=== PATIENT | female | born 1960 | race African-American/Black ===

== ENCOUNTER 2018-01-29 19:45 | Emergency (ER) | payer MEDICARE, MEDICAID ==
[~2018-01-29] VITALS: Ht 167.6 cm; Wt 109.0 kg
[~2018-01-29 19:45] MED LIST: AMLO1CAP5 PO
[2018-01-29 21:53] LABS: BASOPHILS % 0.8 % (0.0-2.0); EOSINOPHILS % 4.7 % (0.0-5.0); HEMATOCRIT. 38.8 % (36.0-48.0); HEMOGLOBIN. 12.9 g/dL (12.0-16.0); LYMPHOCYTES % 45.9 % (20.0-50.0); MEAN CORPUSCULAR VOLUME 84.1 fL (81.0-99.0); MEAN PLATELET VOLUME 7.7 fl (7.4-10.4); MONOCYTES % 7.7 % (2.0-8.0); NEUTROPHILS % 40.9 % (40.0-76.0); PLATELET 299 x1000/uL (130-400); RED BLOOD CELL COUNT 4.61 mill/uL (4.2-5.4); RED CELL DISTRIBUTION WIDTH 15.7 % (11.6-14.6)
[2018-01-29 21:59] LABS: CHLORIDE 106 mEq/L (98-107)
[2018-01-29 22:04] LABS: D-DIMER 2.35 mg/L FEU (<0.50); PROTHROMBIN TIME 9.9 sec (9.1-11.1)
[2018-01-29] MEDS ORDERED: IOHEXOL-350 100 ML BOTTLE ONE (23:00)
[2018-01-29 23:26] LABS: BASOPHILS % 1.9 % (0.0-2.0); EOSINOPHILS % 3.8 % (0.0-5.0); HEMATOCRIT. 37.5 % (36.0-48.0); HEMOGLOBIN. 12.6 g/dL (12.0-16.0); LYMPHOCYTES % 46.2 % (20.0-50.0); MEAN CORPUSCULAR HEMOGLOBIN 28.1 pg (28.0-32.0); MEAN PLATELET VOLUME 7.6 fl (7.4-10.4); MONOCYTES % 6.1 % (2.0-8.0); PLATELET 292 x1000/uL (130-400); RED BLOOD CELL COUNT 4.47 mill/uL (4.2-5.4); RED CELL DISTRIBUTION WIDTH 15.6 % (11.6-14.6)
[2018-01-29 23:30] LABS: CHLORIDE 107 mEq/L (98-107)
[2018-01-29] MEDS ORDERED: HYDROCODONE/ACETAMINOPHEN 5/325MG TABLET PO ONE (23:45)
[2018-01-30 00:03] LABS: CLARITY URINE CLEAR (CLEAR); COLOR URINE YELLOW (YELLOW); KETONES URINE TRACE (NEGATIVE); LEUKOCYTE ESTERASE URINE NEGATIVE (NEGATIVE); NITRITE URINE NEGATIVE (NEGATIVE); OCCULT BLOOD URINE NEGATIVE (NEGATIVE); PROTEIN URINE NEGATIVE (NEGATIVE); SPECIFIC GRAVITY URINE 1.025 (1.005-1.030)
[2018-01-30 04:30] VITALS: BP 140/78
== END 2018-01-30 04:30 | disposition home or self-care (01) ==
LOC: ER 20:34
DX: R06.00 Dyspnea, unspecified (principal); R07.89 Other chest pain; I10 Essential (primary) hypertension; E11.9 Type 2 diabetes mellitus without complications; Z79.899 Other long term (current) drug therapy
CPT/HCPCS: 36415; 71045; 71275; 80053; 81003; 83880; 84484; 85025; 85379; 85610; 93005; 99285; Q9967

== ENCOUNTER 2018-09-03 13:41 | Inpatient (IN) | payer MEDICARE, MEDICAID ==
[~2018-09-03] VITALS: Ht 172.7 cm; Wt 109.3 kg
[2018-09-03] MEDS ORDERED: DIAZEPAM 5 MG TABLET PO ONE (14:15)
[2018-09-03] MEDS ORDERED: FAMOTIDINE 20MG TABLET PO ONE (14:15)
[2018-09-03] MEDS ORDERED: MAGNESIUM/ALUMINUM HYDROXIDE/SIMETHICONE 30ML UDC PO ONE (14:15)
[2018-09-03] MEDS ORDERED: IBUPROFEN 800MG TABLET PO ONE (14:15)
[2018-09-03 14:45] LABS: CHLORIDE 106 mEq/L (98-107); PARTIAL THROMBOPLASTIN TIME 26.7 sec (23.4-31.0); PROTHROMBIN TIME 10.1 sec (9.6-11.0)
[2018-09-03 14:49] LABS: ETHANOL BLOOD < 10 mg/dL
[2018-09-03 14:55] LABS: BASOPHILS % 1.5 % (0.0-2.0); EOSINOPHILS % 1.8 % (0.0-5.0); HEMATOCRIT. 40.3 % (36.0-48.0); HEMOGLOBIN. 13.4 g/dL (12.0-16.0); LYMPHOCYTES % 46.6 % (20.0-50.0); MEAN CORPUSCULAR HEMOGLOBIN 28.5 pg (28.0-32.0); MEAN CORPUSCULAR VOLUME 85.4 fL (81.0-99.0); MEAN PLATELET VOLUME 8.1 fl (7.4-10.4); MONOCYTES % 5.1 % (2.0-8.0); PLATELET 278 x1000/uL (130-400); RED BLOOD CELL COUNT 4.71 mill/uL (4.2-5.4); RED CELL DISTRIBUTION WIDTH 15.2 % (11.6-14.6)
[2018-09-03 15:07] LABS: CLARITY URINE CLEAR (CLEAR); COLOR URINE YELLOW (YELLOW); KETONES URINE NEGATIVE (NEGATIVE); LEUKOCYTE ESTERASE URINE NEGATIVE (NEGATIVE); NITRITE URINE NEGATIVE (NEGATIVE); OCCULT BLOOD URINE NEGATIVE (NEGATIVE); PROTEIN URINE NEGATIVE (NEGATIVE); SPECIFIC GRAVITY URINE 1.006 (1.005-1.030); UROBILINOGEN URINE 0.2 E.U./dL (0.2-1.0)
[2018-09-03 15:29] LABS: *AMPHETAMINES SCREEN URINE NEGATIVE (NEGATIVE)
[2018-09-03 15:30] LABS: *BARBITURATES SCREEN URINE NEGATIVE (NEGATIVE); *BENZODIAZEPINES SCREEN URINE NEGATIVE (NEGATIVE); *COCAINE SCREEN URINE NEGATIVE (NEGATIVE); METHADONE URINE SCREEN NEGATIVE (NEGATIVE); OPIATES URINE SCREEN NEGATIVE (NEGATIVE); PHENCYCLIDINE URINE SCREEN NEGATIVE (NEGATIVE)
[2018-09-03 15:31] LABS: CANNABINOID URINE SCREEN NEGATIVE (NEGATIVE)
[2018-09-03] MEDS ORDERED: ACETAMINOPHEN 325MG TABLET PO PRN (16:45)
[2018-09-03] MEDS ORDERED: DOCUSATE SODIUM 100MG CAPSULE PO PRN (16:45)
[2018-09-03] MEDS ORDERED: ONDANSETRON HCL 4MG/2ML INJ IV PRN (16:45)
[2018-09-03] MEDS ORDERED: IPRATROPIUM/ALBUTEROL 0.5-3(2.5)MG/3ML NEB INH PRN (16:45)
[2018-09-03] MEDS ORDERED: MAGNESIUM/ALUMINUM HYDROXIDE/SIMETHICONE 30ML UDC PO PRN (16:45)
[2018-09-03] MEDS ORDERED: ENOXAPARIN 40MG/0.4ML SYR SUBCUT SCH (16:45)
[2018-09-03] MEDS ORDERED: CLONIDINE 0.1MG TABLET PO PRN (16:45)
[2018-09-03] MEDS ORDERED: GUAIFENESIN 200MG/10ML SUGAR FREE UDC PO PRN (16:45)
[2018-09-03 17:19] LABS: PHOSPHORUS 3.3 mg/dL (2.5-4.9)
[2018-09-03 22:14] VITALS: BP 142/63
[2018-09-03 22:50] VITALS: BP 142/63
[2018-09-03] MEDS: HYDROCODONE/ACETAMINOPHEN 5/325MG TABLET PO PRN (23:28)
[2018-09-03] MEDS ORDERED: ASPI-1158 PO (23:43)
[2018-09-03] MEDS ORDERED: METF-815 PO (23:43)
[2018-09-03] MEDS ORDERED: CARI350T27 PO (23:45)
[2018-09-03] MEDS ORDERED: ESCI10TA54 PO (23:45)
[2018-09-03] MEDS ORDERED: ATOR10TA69 PO (23:45)
[2018-09-04 00:05] VITALS: BP 144/59
[2018-09-04] MEDS ORDERED: DEXTROSE 50% WATER 50ML SYRINGE IV PRN (02:15)
[2018-09-04] MEDS: HYDROCODONE/ACETAMINOPHEN 5/325MG TABLET PO PRN (03:17)
[2018-09-04 04:00] VITALS: BP 135/64
[2018-09-04 06:47] LABS: BASOPHILS % 1.1 % (0.0-2.0); EOSINOPHILS % 2.6 % (0.0-5.0); HEMATOCRIT. 38.9 % (36.0-48.0); HEMOGLOBIN. 12.7 g/dL (12.0-16.0); LYMPHOCYTES % 51.8 % (20.0-50.0); MEAN CORPUSCULAR HEMOGLOBIN 28.1 pg (28.0-32.0); MEAN CORPUSCULAR VOLUME 85.6 fL (81.0-99.0); MEAN PLATELET VOLUME 8.2 fl (7.4-10.4); MONOCYTES % 6.1 % (2.0-8.0); NEUTROPHILS % 38.4 % (40.0-76.0); PLATELET 267 x1000/uL (130-400); RED BLOOD CELL COUNT 4.54 mill/uL (4.2-5.4); RED CELL DISTRIBUTION WIDTH 15.5 % (11.6-14.6)
[2018-09-04 07:17] LABS: CHLORIDE 108 mEq/L (98-107)
[2018-09-04 07:25] LABS: HDL CHOLESTEROL 43 mg/dL (40-59); LDL CHOLESTEROL 84 mg/dL (5-100)
[2018-09-04] MEDS ORDERED: BLOOD SUGAR DIAGNOSTIC STRIP TEST SCH (07:40)
[2018-09-04 08:00] VITALS: BP 126/69
[2018-09-04] MEDS ORDERED: INSULIN LISPRO 100 UNITS/ML SUBCUT SCH (08:10)
[2018-09-04] MEDS ORDERED: ENOXAPARIN 30MG/0.3ML SYR SUBCUT SCH (09:00)
== END 2018-09-04 11:00 | disposition home or self-care (01) | DRG 206 ==
LOC: ER 13:41 → 7WST 16:14 → ENRESERV 20:53
PROVIDERS: ADMIT Internal Medicine; ATTEND Internal Medicine
DX: M94.0 Chondrocostal junction syndrome [Tietze] (principal); I24.9 Acute ischemic heart disease, unspecified; R07.9 Chest pain, unspecified; E11.9 Type 2 diabetes mellitus without complications; E66.01 Morbid (severe) obesity due to excess calories; G89.29 Other chronic pain; I10 Essential (primary) hypertension; J44.9 Chronic obstructive pulmonary disease, unspecified; Z96.649 Presence of unspecified artificial hip joint; Z68.36 Body mass index [BMI] 36.0-36.9, adult
CPT/HCPCS: 36415; 71045; 80061; 80305; 80320; 82962; 83036; 83735; 83880; 84100; 84443; 84484; 93005; 93970; 97162; 99285; J1650; J1815; G0480

== ENCOUNTER 2020-02-08 23:17 | Inpatient (IN) | payer MEDICARE, MEDICAID ==
[~2020-02-08] VITALS: Ht 167.6 cm; Wt 117.9 kg
[~2020-02-08 23:17] MED LIST changes: +ASPI-1158 PO; +ATOR10TA69 PO; +CARI350T27 PO; +ESCI10TA61 PO; +METF-815 PO
[2020-02-08] MEDS ORDERED: SODIUM CHLORIDE 0.9% 1,000 ML IV ONE (23:47)
[2020-02-09 00:29] LABS: CHLORIDE 112 mEq/L (98-107)
[2020-02-09] MEDS ORDERED: AZITHROMYCIN 500 MG in DEXT 5% WATER 250 ML IV ONE (00:30)
[2020-02-09] MEDS ORDERED: CEFTRIAXONE 1 G PREMIX 50 ML IV ONE (00:30)
[2020-02-09 00:35] LABS: BASOPHILS % 0.9 % (0.0-2.0); EOSINOPHILS % 1.4 % (0.0-5.0); HEMATOCRIT. 38.9 % (36.0-48.0); LYMPHOCYTES % 29.6 % (20.0-50.0); MEAN CORPUSCULAR HEMOGLOBIN 28.7 pg (28.0-32.0); MEAN CORPUSCULAR VOLUME 85.7 fL (81.0-99.0); MEAN PLATELET VOLUME 7.7 fl (7.4-10.4); MONOCYTES % 5.8 % (2.0-8.0); NEUTROPHILS % 62.3 % (40.0-76.0); PLATELET 265 x1000/uL (130-400); RED BLOOD CELL COUNT 4.53 mill/uL (4.2-5.4); RED CELL DISTRIBUTION WIDTH 15.9 % (11.6-14.6)
[2020-02-09 04:24] LABS: CLARITY URINE TURBID (CLEAR); COLOR URINE YELLOW (YELLOW); KETONES URINE NEGATIVE (NEGATIVE); LEUKOCYTE ESTERASE URINE 1+ (NEGATIVE); NITRITE URINE NEGATIVE (NEGATIVE); OCCULT BLOOD URINE NEGATIVE (NEGATIVE); PROTEIN URINE NEGATIVE (NEGATIVE); SPECIFIC GRAVITY URINE 1.017 (1.005-1.030); UROBILINOGEN URINE 0.2 E.U./dL (0.2-1.0)
[2020-02-09 09:15] VITALS: BP_SYST 117; BP_SYST 146; BP_DIAS 77
[2020-02-09] MEDS ORDERED: DEXTROSE 50% WATER 50ML SYRINGE IV PRN (11:15)
[2020-02-09] MEDS ORDERED: ONDANSETRON HCL 4MG/2ML INJ IV PRN (11:15)
[2020-02-09] MEDS ORDERED: ACETAMINOPHEN 325MG TABLET PO PRN (11:15)
[2020-02-09] MEDS: BLOOD SUGAR DIAGNOSTIC STRIP TEST SCH ×3 (11:29→21:43)
[2020-02-09] MEDS: INSULIN LISPRO 100 UNITS/ML SUBCUT SCH ×3 (11:29→21:00)
[2020-02-09 12:00] VITALS: BP 148/75
[2020-02-09] MEDS ORDERED: ENOXAPARIN 40MG/0.4ML SYR SUBCUT SCH (12:00)
[2020-02-09 16:00] VITALS: BP_SYST 113; BP_SYST 157; BP_DIAS 53; BP_DIAS 95
[2020-02-09] MEDS: METFORMIN HCL 500MG TABLET PO SCH (17:20)
[2020-02-09 20:00] VITALS: BP 120/57
[2020-02-09] MEDS ORDERED: CEFTRIAXONE 1,000 MG in DEXTROSE 5% WATER 50 ML IV SCH (21:00)
[2020-02-09] MEDS ORDERED: ENOXAPARIN 30MG/0.3ML SYR SUBCUT SCH (21:00)
[2020-02-10] VITALS: BP 169/75
[2020-02-10 00:30] VITALS: BP 145/73
[2020-02-10 04:00] VITALS: BP_SYST 147; BP_SYST 150; BP_SYST 155; BP_DIAS 67; BP_DIAS 82; BP_DIAS 89
[2020-02-10] MEDS: BLOOD SUGAR DIAGNOSTIC STRIP TEST SCH (06:31)
[2020-02-10] MEDS: METFORMIN HCL 500MG TABLET PO SCH (06:32)
[2020-02-10] MEDS: INSULIN LISPRO 100 UNITS/ML SUBCUT SCH (06:33)
[2020-02-10 08:00] VITALS: BP_SYST 128; BP_SYST 136; BP_DIAS 69; BP_DIAS 74; BP_DIAS 79
[2020-02-10] MEDS ORDERED: AZITHROMYCIN 250 MG TABLET PO SCH (09:00)
[2020-02-10 09:43] VITALS: BP 136/69
== END 2020-02-10 10:20 | disposition home or self-care (01) | DRG 74 ==
LOC: ER 23:17 → 7WST 02-09 01:05 → ENRESERV 02-09 07:29 → 5WST 02-09 14:15
PROVIDERS: ADMIT Internal Medicine; ATTEND Internal Medicine
DX: G90.8 Other disorders of autonomic nervous system (principal); J98.11 Atelectasis; E44.1 Mild protein-calorie malnutrition; E87.1 Hypo-osmolality and hyponatremia; Z68.41 Body mass index [BMI] 40.0-44.9, adult; Z20.828 Contact with and (suspected) exposure to other viral communicable diseases; E11.9 Type 2 diabetes mellitus without complications; E66.9 Obesity, unspecified; E78.5 Hyperlipidemia, unspecified; I10 Essential (primary) hypertension; R42 Dizziness and giddiness; J98.8 Other specified respiratory disorders; X30.XXXA Exposure to excessive natural heat, initial encounter; Y93.89 Activity, other specified; Y92.89 Other specified places as the place of occurrence of the external cause; Y99.8 Other external cause status
CPT/HCPCS: 36415; 71045; 80053; 81003; 82962; 83605; 83880; 84484; 85025; 87426; 93005; 96365; 99285; J0456; J0696; J1650; J7030; J7060

== ENCOUNTER 2023-09-03 22:19 | Emergency (ER) | payer MEDICAID, MEDICARE ==
[~2023-09-03] VITALS: Ht 167.6 cm; Wt 100.0 kg
[~2023-09-03 22:19] MED LIST changes: -ASPI-1158 PO; +ASPI-1406 PO; +ESCI-7 PO; -ESCI10TA61 PO; -METF-815 PO; +METF-873 PO
[2023-09-03 22:37] VITALS: O2SAT 98
[2023-09-03 23:05] LABS: BASOPHILS % 1.2 % (0.0-2.0); EOSINOPHILS % 1.7 % (0.0-5.0); HEMATOCRIT. 39.1 % (36.0-48.0); HEMOGLOBIN. 13.4 g/dL (12.0-16.0); LYMPHOCYTES % 31.6 % (20.0-50.0); MEAN CORPUSCULAR HEMOGLOBIN 28.9 pg (28.0-32.0); MEAN CORPUSCULAR HGB CONC 34.2 g/dL (31.0-37.0); MEAN CORPUSCULAR VOLUME 84.5 fL (81.0-99.0); MEAN PLATELET VOLUME 7.6 fl (7.4-10.4); MONOCYTES % 4.8 % (2.0-8.0); NEUTROPHILS % 60.7 % (40.0-76.0); PLATELET 327 x1000/uL (130-400); RED BLOOD CELL COUNT 4.63 mill/uL (4.2-5.4); RED CELL DISTRIBUTION WIDTH 15.5 % (11.6-14.6)
[2023-09-03 23:17] LABS: CLARITY URINE CLEAR (CLEAR); COLOR URINE YELLOW (YELLOW); GLUCOSE URINE NEGATIVE (NEGATIVE); KETONES URINE NEGATIVE (NEGATIVE); LEUKOCYTE ESTERASE URINE NEGATIVE (NEGATIVE); NITRITE URINE NEGATIVE (NEGATIVE); OCCULT BLOOD URINE TRACE (NEGATIVE); PH URINE 5.5 (4.5-8.0); PROTEIN URINE NEGATIVE (NEGATIVE); UROBILINOGEN URINE 0.2 E.U./dL (0.2-1.0)
[2023-09-03 23:24] LABS: ALANINE AMINOTRANSFERASE 8 IU/L (10-49); ALBUMIN 4.3 g/dL (3.2-4.8); ASPARTATE AMINOTRANSFERASE 13 IU/L (<34); BILIRUBIN TOTAL 0.6 mg/dL (0.1-1.0); CARBON DIOXIDE 25 mEq/L (21-32); CHLORIDE 102 mEq/L (98-107); CREATININE 1.1 mg/dL (0.6-1.0); GLUCOSE 147 mg/dL (70-105); POTASSIUM 3.6 mEq/L (3.5-5.1); PROTEIN TOTAL 6.6 g/dL (6.0-8.3); SODIUM 135 mEq/L (136-145); UREA NITROGEN BLOOD 16 mg/dL (9-23)
[2023-09-04] LABS: WBC URINE 0-2 /hpf (0-2)
[2023-09-04 00:01] LABS: BACTERIA URINE 1+; RBC URINE 0-2 /hpf (0-2); SQUAMOUS EPITHELIAL CELL URINE FEW /lpf (RARE/1+)
[2023-09-04 06:14] LABS: TROPONIN I HIGH SENSITIVITY < 4 ng/L (3.0-34)
[2023-09-04] MEDS: FAMOTIDINE 20MG/2ML VIAL IV NR (08:26)
[2023-09-04] MEDS: MAGNESIUM/ALUMINUM HYDROXIDE/SIMETHICONE 30ML UDC PO NR (08:26)
[2023-09-04 11:04] VITALS: TEMP 98.3
[2023-09-04 13:25] VITALS: BP 125/71; PULSE 78; RESP 17
== END 2023-09-04 13:27 | disposition home or self-care (01) ==
LOC: ER 22:19
DX: R10.9 Unspecified abdominal pain (principal); E11.9 Type 2 diabetes mellitus without complications; I10 Essential (primary) hypertension; Z79.899 Other long term (current) drug therapy
CPT/HCPCS: 99285; 80053; 81003; 83690; 85025; 36415 ×2; 74176; 96374; 71045; 84484; 93005; J3490